=== PATIENT | female | born 1960 | race Caucasian/White ===

== ENCOUNTER → 2018-04-02 | Outpatient (CLI) | payer OTHER | LOC: RAD 04:07 | DX: Z12.31 Encounter for screening mammogram for malignant neoplasm of breast (principal) ==

== ENCOUNTER 2018-06-21 19:50 | Emergency (ER) | payer OTHER ==
[~2018-06-21] VITALS: Ht 162.6 cm; Wt 58.5 kg
[2018-06-21 20:15] LABS: ABSOLUTE NEUTROPHILS 1.7 thou/uL (1.4-8.2); BASOPHILS 2.9 % (0.0-2.0); HEMATOCRIT 39.5 % (37.0-47.0); HEMOGLOBIN 13.7 gm/dL (12.0-15.0); LYMPHOCYTES 45.3 % (24.0-44.0); MCH 29.9 pg (26.0-34.0); MCHC 34.7 g/dL (28.0-37.0); MCV 86.4 fL (80.0-100.0); MONOCYTES 10.9 % (1.0-8.0); PLATELET COUNT 295 thou/uL (150-400); POLYS 36.9 % (36.0-66.0); RBC 4.57 mil/uL (4.20-5.00); RDW 12.7 % (10.5-14.5); WBC 4.5 thou/uL (4.0-11.0)
[2018-06-21 20:17] LABS: ANION GAP 7 mmol/L (7-16); BUN 19 mg/dL (7-18); CALCIUM 9.3 mg/dL (8.5-10.1); CHLORIDE 104 mmol/L (98-107); CO2 30 mmol/L (21-32); GLUCOSE 110 mg/dL (74-106); POTASSIUM 4.2 mmol/L (3.5-5.1); SODIUM 141 mmol/L (136-145)
[2018-06-21 20:26] LABS: TROPONIN-I <0.06 ng/mL (<0.06)
[2018-06-21 20:30] LABS: APTT 25.1 Seconds (24.5-32.8); PROTIME 9.9 Seconds (9.3-11.4)
[2018-06-21 20:48] LABS: POC CA IONIZED 4.9 mg/dL (4.5-5.3); POC CREATININE 1.1 mg/dL (0.6-1.3); POC HEMOGLOBIN 11.6 g/dL (12.0-15.0); POC POTASSIUM 3.9 mmol/L (3.5-5.1)
[2018-06-21] MEDS ORDERED: VITAMIN D3400 UNIT PO (20:58)
[2018-06-21] MEDS ORDERED: SYNTHROID50 MCG PO (20:58)
[2018-06-21 21:06] LABS: URINE BILIRUBIN NEGATIVE (Negative); URINE BLOOD NEGATIVE (Negative); URINE CLARITY CLEAR; URINE COLOR YELLOW; URINE GLUCOSE-RANDOM* NEGATIVE (Negative); URINE KETONES NEGATIVE (Negative); URINE LEUKOCYTES-REFLEX NEGATIVE (Negative); URINE NITRITE-REFLEX NEGATIVE (Negative); URINE PROTEIN (DIPSTICK) NEGATIVE (Negative); URINE SPECIFIC GRAVITY 1.015 (1.005-1.035); URINE UROBILINOGEN 0.2 E.U./dl (0.2-1.0)
[2018-06-21 22:02] VITALS: BP 105/59
--- NOTE | 2018-06-22 10:50 | EKG ---
[place] [address] [facility] [place] [address] ELECTROCARDIOGRAM REPORT Name: BEN RUTH Room #: [facility]#: [id number] Admission: 06/21/18 Attend Phys: Discharge: 06/21/18 Date of : 56 Report #: [id number] THIS REPORT FOR: //name// [facility] ED Test Date: 2018-06-21 Test Time: 20:49:04 Pat Name: BEN RUTH Department: Room: Gender: F Arm[employer]: : 1960 Requested By: Aliya Herrera Order Number: [id number] MD: Cristi Wiggins Measurements Intervals [place] Rate: 77 P: 58 UT: 165 QRS: 40 QRSD: 75 T: 44 QT: 384 QTc: 435 Interpretive Statements Sinus rhythm Normal tracing No previous ECG available for comparison Electronically Signed On 06-22-2018 10:50:03 SPOT REMOVER by Cristi Wiggins [email or web address] <ELECTRONICALLY SIGNED> By: Cristi Wiggins MD, [facility] 06/22/18 1050 2049 48 Cristi Wiggins MD, FACC /EPI
== END 2018-06-21 22:04 | disposition home or self-care (01) ==
LOC: ER 19:50
PROVIDERS: Student in an Organized Health Care Education/Training Program
DX: G43.809 Other migraine, not intractable, without status migrainosus (principal); Z88.5 Allergy status to narcotic agent; Z88.8 Allergy status to other drugs, medicaments and biological substances

== ENCOUNTER → 2019-03-06 | Outpatient (CLI) | payer OTHER ==
[~2019-03-06] MED LIST: SYNTHROID50 MCG PO; VITAMIN D3400 UNIT PO
== END ==
LOC: MRI 08:58
DX: J32.3 Chronic sphenoidal sinusitis (principal); Z88.5 Allergy status to narcotic agent

== ENCOUNTER → 2019-08-28 | Outpatient (CLI) | payer OTHER ==
--- NOTE | 2019-08-28 13:33 | 2DMMODE ---
[facility] [place] [address] 2 D/M-MODE ECHOCARDIOGRAM Name: BEN RUTH Room #: CHARLIE Lazo[facility]#: [id number] Admission: 08/28/19 Attend Phys: Ken Houston MD Discharge: Date of : 56 Report #: [id number] THIS REPORT FOR: cc: Cristofer Vogel MD, Sudhir J. MD Lammoglia, Francisco J. MD ~ APPROVED REPORT Study performed: 08/28/2019 11:03:29 EXAM: Comprehensive 2D, Doppler, and color-flow Echocardiogram Patient Location: Out-Patient Room #: Echo lab 1 Status: routine BSA: 1.64 HR: 75 bpm Rhythm: NSR Other Information Study Quality: Good Indications CVA/TIA Migraines Echo Enhancing Agent Indication: Rule out Shunt Agent(s) / Amount(s) Used: Agitated Saline 7 cc 2D Dimensions RVDd: 29.04 mm IVSd: 8.26 (7-11mm) LVOT Diam: 17.24 (18-24mm) LVDd: 36.39 mm PWd: 7.43 (7-11mm) Ascending Ao: 29.75 (22-36mm) LVDs: 26.60 (25-40mm) Aortic Root: 30.34 mm IVC: 16.00 mm Volumes Left Atrial Volume (Systole) Single Plane 4CH: 23.92 mL Single Plane 2CH: 25.29 mL LA ESV Index: 16.00 mL/m2 Aortic Valve [facility] [address] [address] 2 D/M-MODE ECHOCARDIOGRAM Name: BEN RUTH Room #: [facility]#: [id number] Admission: 08/28/19 Attend Phys: Ken Houston, Discharge: Date of : 56 Report #: [id number] AoV Peak Harry.: 1.52 m/s AO Peak Gr.: 9.18 mmHg LVOT Max P.67 mmHg LVOT Max V: 1.29 m/s DIAZ Vmax: 1.99 cm2 Mitral Valve E/A Ratio: 1.0 MV Decel. Time: 200.37 ms MV E Max Harry.: 0.65 m/s MV A Harry.: 0.63 m/s MV PHT: 58.11 ms IVRT: 106.11 ms Pulmonary Valve PV Peak Harry.: 0.90 m/s PV Peak Gr.: 3.22 mmHg Pulmonary Vein P Vein S: 0.54 m/s P Vein A: 0.24 m/s P Vein D: 0.44 m/s P Vein A Dur.: 92.3 msec P Vein S/D Ratio: 1.23 Left Ventricle The left ventricle is normal size. There is normal LV segmental wall motion. There is normal left ventricular wall thickness. Left ventricular systolic function is normal. The left ventricular ejection fraction is within the normal range. LVEF is 55-60%. The left ventricular diastolic function is normal. Right Ventricle The right ventricle is normal size. The right ventricular systolic function is normal. Atria The left atrium size is normal. Interatrial septum is intact without evidence of ASD or PFO. The right atrium size is normal. Aortic Valve The aortic valve is normal in structure. No aortic regurgitation is present. There is no aortic valvular stenosis. Mitral Valve The mitral valve is normal in structure. There is no mitral valve regurgitation noted. No evidence of mitral valve stenosis. Tricuspid Valve The tricuspid valve is normal in structure. There is no tricuspid [facility] [address] [place] [address] 2 D/M-MODE ECHOCARDIOGRAM Name: BEN RUTH [id number] Admission: 08/28/19 Attend Phys: Ken Houston, Discharge: Date of : 56 Report #: [id number] valve regurgitation noted. Pulmonic Valve The pulmonary valve is normal in structure. There is no pulmonic valvular regurgitation. Great Vessels The aortic root is normal in size. IVC is normal in size and collapses >50% with inspiration. Pericardium There is no pericardial effusion. <Conclusion> The left ventricle is normal size. LVEF is 55-60%. The aortic valve is normal in structure. The mitral valve is normal in structure. The tricuspid valve is normal in structure. The pulmonary valve is normal in structure. There is no pericardial effusion. Interatrial septum is intact without evidence of ASD or PFO. <ELECTRONICALLY SIGNED> By: Geoff Guerra MD 08/28/191330 30 30 Geoff Guerra MD /INF
== END ==
LOC: CV 10:54
DX: G43.919 Migraine, unspecified, intractable, without status migrainosus (principal); F41.9 Anxiety disorder, unspecified

== ENCOUNTER → 2019-11-05 | Outpatient (CLI) | payer OTHER ==
[2019-11-05 09:13] LABS: HEMATOCRIT 41.2 % (37.0-47.0); MCH 29.8 pg (26.0-34.0); MCV 87.6 fL (80.0-100.0); PLATELET COUNT 270 thou/uL (150-400); RBC 4.71 mil/uL (4.20-5.00); RDW 13.7 % (10.5-14.5); WBC 2.6 thou/uL (4.0-11.0)
[2019-11-05 10:26] LABS: TSH 2.339 uIU/mL (0.358-3.740)
[2019-11-05 13:19] LABS: ABSOLUTE NEUTROPHILS 0.7 thou/uL (1.4-8.2)
[2019-11-05 13:20] LABS: ATYPICAL LYMPHS 2 %
[2019-11-05 13:21] LABS: ANISOCYTOSIS SLIGHT
[2019-11-05 15:15] LABS: ANION GAP 8 mmol/L (7-16); BUN 13 mg/dL (7-18); CALCIUM 8.9 mg/dL (8.5-10.1); CHLORIDE 104 mmol/L (98-107); CHOLESTEROL 208 mg/dL (<200); CO2 27 mmol/L (21-32); DIRECT BILIRUBIN < 0.1 mg/dL (<0.1-0.2); GLUCOSE 91 mg/dL (74-106); HDL CHOLESTEROL 55 mg/dL (>40); LDL CHOLESTEROL 142 mg/dL (<100); POTASSIUM 4.7 mmol/L (3.5-5.1); SGOT 17 U/L (15-37); SGPT 30 U/L (30-65); SODIUM 139 mmol/L (136-145); TC:HDL 3.8 Ratio (Not establshd); TOTAL BILIRUBIN 0.3 mg/dL (0.2-1.0); TOTAL PROTEIN 6.9 g/dL (6.4-8.2); TRIGLYCERIDE 55 mg/dL (<150); VLDL 11 mg/dL (<40)
[2019-11-06 01:08] LABS: GLYCOHEMOGLOBIN (HGB A1C) 5.3 % (4.8-5.6)
== END ==
LOC: LABMALL 08:15
PROVIDERS: Registered Nurse Diabetes Educator
DX: K21.9 Gastro-esophageal reflux disease without esophagitis (principal); Z13.220 Encounter for screening for lipoid disorders; Z13.1 Encounter for screening for diabetes mellitus; Z79.899 Other long term (current) drug therapy

== ENCOUNTER → 2019-11-25 | Outpatient (CLI) | payer OTHER | LOC: RAD 14:22 | PROVIDERS: ATTEND Registered Nurse Diabetes Educator | DX: Z12.31 Encounter for screening mammogram for malignant neoplasm of breast (principal) ==

== ENCOUNTER 2020-06-07 12:44 | Inpatient (IN) | payer OTHER ==
[~2020-06-07] VITALS: Ht 162.6 cm; Wt 58.1 kg
[2020-06-07 12:53] VITALS: BP 104/76
[2020-06-07 15:37] LABS: ABSOLUTE NEUTROPHILS 3.7 thou/uL (1.4-8.2); BASOPHILS 0.9 % (0.0-2.0); EOSINOPHILS 0.9 % (0.0-3.0); HEMATOCRIT 41.1 % (37.0-47.0); HEMOGLOBIN 13.8 gm/dL (12.0-15.0); LYMPHOCYTES 20.1 % (24.0-44.0); MCH 28.7 pg (26.0-34.0); MCHC 33.6 g/dL (28.0-37.0); MCV 85.4 fL (80.0-100.0); MONOCYTES 10.1 % (1.0-8.0); PLATELET COUNT 264 thou/uL (150-400); RBC 4.81 mil/uL (4.20-5.00); RDW 12.9 % (10.5-14.5); WBC 5.4 thou/uL (4.0-11.0)
[2020-06-07 15:48] LABS: CREATININE 0.9 mg/dL (0.6-1.0); POTASSIUM 4.1 mmol/L (3.5-5.1)
[2020-06-07 15:55] LABS: ALBUMIN 3.3 g/dL (3.4-5.0); TOTAL BILIRUBIN 0.7 mg/dL (0.2-1.0)
[2020-06-07 22:36] VITALS: BP 96/62
[2020-06-07 22:37] VITALS: BP 96/62
--- NOTE | 2020-06-07 22:38 | NUR ---
HANDOFF SENT TO 3W
[2020-06-07 23:22] VITALS: BP 96/62
[2020-06-07 23:30] VITALS: BP 114/62
--- NOTE | 2020-06-08 01:58 | NUR ---
PT ALERT AND ORIENTED X4. VSS AFEBRILE SAT 99% ON 2LNC. BS DIMINISHED BILATERALLY. IV ABX STARTED IN ER ORDERED. PT RESTING QUIETLY PRESENTLY. NO C/O PAIN. NO S/S SOA OR DISTRESS. PT STATED HER IS IN THE HOSPITAL WITH [facility] AT [facility]. HER SISTER CAN BE CONTACTED OUT OF TOWN IF NEEDED. INSTRUCTED PT ON FALL PRECAUTIONS. BED ALARM ON DUE TO PT STATED SHE FEELS WEAK WHEN SHE WALKS.
[2020-06-08 04:03] VITALS: BP 98/73
--- NOTE | 2020-06-08 05:14 | NUR ---
PT PROGRESSING TOWARDS D/C GOALS. VSS AFEBRILE. SATS 100% ON 2LNC. NO C/O CP. NO SOA NOTED. NONPRODUCTIVE COUGH NOTED.
[2020-06-08 06:13] LABS: HEMATOCRIT 38.2 % (37.0-47.0); HEMOGLOBIN 12.9 gm/dL (12.0-15.0); MCH 28.8 pg (26.0-34.0); MCHC 33.9 g/dL (28.0-37.0); RBC 4.49 mil/uL (4.20-5.00); RDW 13.1 % (10.5-14.5); WBC 2.7 thou/uL (4.0-11.0)
[2020-06-08 06:39] LABS: CALCIUM 8.5 mg/dL (8.5-10.1); POTASSIUM 4.4 mmol/L (3.5-5.1)
[2020-06-08 07:27] VITALS: BP 106/64
--- NOTE | 2020-06-08 12:07 | NUR ---
Nutrition: pt seen due to high risk screen for poor intake, weight loss. Pt admitted with COVID PNA, first diagnosed 05/26. On regular diet, no intake records so far but ns reports pt was eating breakfast this am. 2-13# weight loss indicated on [facility] admission assessment but noted weight of 129# one year ago per [employer] hx and current 128#. PMH: hypothyroidism. Attempted phone call x 2-no answer. Will start Ensure BID and follow po trends. Place as low risk for now.
--- NOTE | 2020-06-08 14:57 | NUR ---
INITIAL ASSESSMENT: Received consult. SW reviewed chart and spoke with nursing and attending physician. Pt was admitted from home due to pneumonia. Pt placed in Enhanced Isolation due to COVID-19. Pt had positive test on 05/26. Pt is afebrile and on 2L of O2. Pt is on IV abx and IV steroids and completing courses of Remdesivir and Ivermectin. SW spoke with pt via phone. Introduced role of SW. Pt is alert/orientated x 4. Pt is an employee at [employer]. Prior to admission, pt was independent with ADLs. No use of DME. No hx of services or post-acute placement. Pt's PCP is Dr. Roseline Carlos. Pt states her also has COVID and has been in [facility] for about a week. Pt is hopeful to discharge home tomorrow. SW explained that attending will round tomorrow and will need clearance from consultants for discharge. Pt verbalized understanding. Plan is for pt to discharge home when medically stable. ELIZABETH is following to assist as needed with discharge planning.
[2020-06-08 15:28] VITALS: BP 93/62
--- NOTE | 2020-06-08 18:44 | NUR ---
assumed care of pt at 0700. pt aox4 in no acute distres.s btreathing comfortably on 2l nc. up ad jo ann w/ steady gait. wanting to go home. iv abx infusing per order. limited appetite. calls appropriatley. wcm.
[2020-06-08 19:47] VITALS: BP 100/69
[2020-06-09 03:50] VITALS: BP 95/63
--- NOTE | 2020-06-09 06:21 | NUR ---
PT ON O2 AT 1L PER NC OVERNIGHT. PT DID STATE THAT SHE FEELS SHE IS BREATHING BETTER TODAY VERSUS WHEN SHE WAS ADMITTED. NO COUGH NOTED. LUNGS CTA, DIMISHED IN BOTH BASES.
[2020-06-09 07:47] VITALS: BP 105/61
[2020-06-09 08:38] LABS: ALBUMIN 2.8 g/dL (3.4-5.0); ANION GAP 12 mmol/L (7-16); BUN 14 mg/dL (7-18); CALCIUM 8.7 mg/dL (8.5-10.1); CHLORIDE 109 mmol/L (98-107); CO2 25 mmol/L (21-32); DIRECT BILIRUBIN < 0.1 mg/dL (<0.1-0.2); GLUCOSE 125 mg/dL (74-106); PHOSPHORUS 2.6 mg/dL (2.5-4.9); POTASSIUM 4.1 mmol/L (3.5-5.1); SGOT 13 U/L (15-37); SGPT 22 U/L (30-65); SODIUM 146 mmol/L (136-145); TOTAL BILIRUBIN 0.2 mg/dL (0.2-1.0); TOTAL PROTEIN 6.1 g/dL (6.4-8.2)
[2020-06-09] MEDS ORDERED: AMERGE2.5 MG PO (08:44)
[2020-06-09] MEDS ORDERED: PREDNISONE 20 M20 M1 PO (11:14)
[2020-06-09] MEDS ORDERED: AZITHROMYCIN500 MG PO (11:14)
[2020-06-09 12:34] VITALS: BP 105/61
--- NOTE | 2020-06-09 14:59 | NUR ---
DISCHARGE NOTE: SW reviewed chart and spoke with nursing and attending physician. Pt remains in Enhanced Isolation due to COVID-19. Pt is medically stable for discharge home today. Rest/exercise oximetry ordered. Pt discharged prior to completions. No SW discharge needs identified. Pt had transportation home. SW is available to assist should needs arise.
== END 2020-06-09 13:38 | disposition home or self-care (01) | DRG 177 ==
LOC: ER 12:44 → 3W 18:21 → EROBS 18:21 → 3W 23:22
PROVIDERS: Emergency Medicine; ADMIT Internal Medicine; ATTEND Internal Medicine
PROC: XW033E5 Introduction of Remdesivir Anti-infective into Peripheral Vein, Percutaneous Approach, New Technology Group 5 (ICD-10-PCS; principal; 2020-06-07)
DX: U07.1 COVID-19 (principal); J12.82 Pneumonia due to coronavirus disease 2019; E03.9 Hypothyroidism, unspecified; Z88.6 Allergy status to analgesic agent; Z88.8 Allergy status to other drugs, medicaments and biological substances; Z79.899 Other long term (current) drug therapy
CPT/HCPCS: 10879

== ENCOUNTER → 2020-06-16 | Outpatient (CLI) | payer OTHER ==
[~2020-06-16] MED LIST changes: +AMERGE2.5 MG PO; +AZITHROMYCIN500 MG PO; +PREDNISONE 20 M20 M1 PO
[2020-06-16 11:00] LABS: ABSOLUTE NEUTROPHILS 7.1 thou/uL (1.4-8.2); BASOPHILS 0.5 % (0.0-2.0); EOSINOPHILS 0.3 % (0.0-3.0); HEMATOCRIT 38.4 % (37.0-47.0); HEMOGLOBIN 12.8 gm/dL (12.0-15.0); LYMPHOCYTES 17.9 % (24.0-44.0); MCH 28.9 pg (26.0-34.0); MCHC 33.4 g/dL (28.0-37.0); MCV 86.3 fL (80.0-100.0); PLATELET COUNT 417 thou/uL (150-400); POLYS 71.3 % (36.0-66.0); RBC 4.45 mil/uL (4.20-5.00); RDW 13.4 % (10.5-14.5)
[2020-06-16 11:13] LABS: ALBUMIN 3.4 g/dL (3.4-5.0); POTASSIUM 4.2 mmol/L (3.5-5.1); TOTAL BILIRUBIN 0.4 mg/dL (0.2-1.0); TOTAL PROTEIN 6.5 g/dL (6.4-8.2)
== END ==
LOC: RAD 10:00
PROVIDERS: ATTEND Family Medicine
DX: U07.1 COVID-19 (principal); J12.82 Pneumonia due to coronavirus disease 2019; E03.9 Hypothyroidism, unspecified

== ENCOUNTER → 2020-12-09 | Outpatient (CLI) | payer OTHER | LOC: BC 09:28 | PROVIDERS: ATTEND Family Medicine | DX: Z12.31 Encounter for screening mammogram for malignant neoplasm of breast (principal); N63.12 Unspecified lump in the right breast, upper inner quadrant ==